=== PATIENT | male | born 1955 | race Caucasian/White ===

== ENCOUNTER 2016-11-26 23:59 | Emergency (ER) | payer OTHER ==
--- NOTE | ~2016-11-26 | CR181 ---
[facility] A Service of [facility] & [facility] RADIOLOGY TEXT RESULTS PATIENT: LI OLIVER LOCATION: [facility] : 54 UNIT #: [id number] AGE: [address]: Rodrigo Le MD SEX: M ORDER DR: [id number] [facility] [address] [place], [place] [address] [id number] MR#: [id number] Acc #: [id number] NAME: LI OLIVER : 1955 SEX: M STUDY DATE/TIME: 11/27/2016 00:16 UNIT: [facility] ROOM: STUDY DESCRIPTION: CR Lumbar Spine 2 or 3 Views Attending Physician: Rodrigo Le M.D. Ordering Physician: Rodrigo Le M.D. Primary Care Physician: Primary Care Physician No MEDICAL IMAGING REPORT This report is preliminary unless electronic signature is present EXAM Lumbar spine 11/27/2016 0016 hours INDICATION Back pain after a seizure and fall today. FINDINGS 3 views of the lumbar spine were obtained. No comparison. Lumbar alignment is normal. There is no subluxation. There are no compression fractures. There is degenerative disc disease with endplate spurring and narrowing predominantly at L5-S1, but also seen to a lesser degree at L1-2, L2-3. There is bilateral L5-S1 facet arthropathy. IMPRESSION Multilevel degenerative disease as above, most pronounced at L5-S1. No fracture or subluxation. Dictated by... Agusto Middleton Jr., M.D. THIS IS AN ELECTRONICALLY VERIFIED REPORT Agusto Middleton Jr., M.D. at 11/27/2016 9:16 PM TI/mauricio TD: 11/27/2016 09:59 JOB #: [id number] MEDICAL IMAGING REPORT COPY
--- NOTE | ~2016-11-26 | CT71 ---
[facility] A Service of [facility] RADIOLOGY TEXT RESULTS PATIENT: LI OLIVER LOCATION: [facility] : 54 UNIT #: [id number] AGE: [address]: Rodrigo Le MD SEX: M ORDER DR: [id number] [facility] [address] [place], [place] [address] [id number] MR#: [id number] Acc #: [id number] NAME: LI OLIVER : 1955 SEX: M STUDY DATE/TIME: 11/27/2016 01:27 UNIT: [facility] ROOM: STUDY DESCRIPTION: CT Head Wo Contrast Attending Physician: Rodrigo Le M.D. Ordering Physician: Rodrigo Le M.D. Primary Care Physician: No Primary Care Physician MEDICAL IMAGING REPORT This report is preliminary unless electronic signature is present EXAM Head CT, 11/27 at 01:27 hours. INDICATIONS Seizure x2 today with subsequent fall. Headache and possible frontal trauma. Pain, which is 6/10. TECHNIQUE This CT exam was performed with one or more of the following radiation dose reduction techniques: automatic exposure control, adjustment of mA and/or kV according to patient size, and iterative reconstruction. FINDINGS Axial images were obtained from base to the vertex without contrast. Comparison made with 06/18/2014. Ventricular size and configuration remain normal. There is generalized atrophy. There is no acute infarct or hemorrhage. There are no masses. No skull fracture. There is acute right maxillary sinusitis. There is complete opacification of the left maxillary sinus. While this is new from the prior head CT, this may be a chronic finding as there is medial bowing of the medial maxillary sinus wall on the left. IMPRESSION 1. No acute findings in the brain. No skull fracture. 2. Acute right maxillary sinusitis. 3. Complete opacification of the left maxillary sinus. There is medial bowing of the medial sinus wall on the left. While these findings appear new since the prior head CT in 2013, they are probably chronic. Dictated by... Agusto Middleton Jr., M.D. [facility] A Service of [facility] RADIOLOGY TEXT RESULTS PATIENT: LI OLIVER LOCATION: [facility] : 54 UNIT #: [id number] AGE: [address]: Rodrigo Le MD SEX: M ORDER DR: THIS IS AN ELECTRONICALLY VERIFIED REPORT Agusto Middleton Jr., M.D. at 11/27/2016 9:16 PM TI/jolie TD: 11/27/2016 10:03 JOB #: [id number] MEDICAL IMAGING REPORT COPY
[2016-11-26 23:46] LABS: BASOPHIL% 0.2 % (0-2.5); DIFF IND NO; EOSINOPHIL% 0.1 % (0.0-7.0); HEMATOCRIT 46.8 % (38.0-50.0); HEMOGLOBIN 15.8 gm/dL (13.0-16.0); LYMPHOCYTE# 1.2 X10e3 (1.0-3.5); LYMPHOCYTE% 8.1 % (17.0-45.0); MEAN CELL VOLUME 83.3 FL (83-96); MEAN CORPUSCULAR HEMOGLOBIN 28.1 PG (28-34); MEAN CORPUSCULAR HGB CONC 33.8 g/dL (30-36); MONOCYTE# 0.6 X10e3 (0-1.0); MONOCYTE% 4.1 % (3.0-12.0); NEUTROPHIL# 12.9 X10e3 (1.5-7.1); NEUTROPHIL% 87.5 % (40-75); PLATELET COUNT 256 X10e3 (140-420); RED BLOOD COUNT 5.61 X10e (3.90-5.60); RED CELL DISTRIBUTION WIDTH 13.1 % (11.0-15.5); WHITE BLOOD COUNT 14.7 X10e3 (4.0-10.5)
[2016-11-26 23:47] LABS: POC - CKMB 1.6 ng/mL (0.0-7.9); POC - TROPONIN <0.05 ng/mL (<=0.05)
[~2016-11-26 23:59] MED LIST: ACTOS15 MG PO; ADVAIR 2501 DISK W/D; ALBUTEROL17 G1; ASPIRIN81 M1 PO; CELEXA PO; COMBIVENT INH14.7 GM INH; COMBIVENT RESPIM4 GM IH; DEPACON100 MG/ML; DEPAKOTE PO; EFFEXOR; GLUCOTROL PO; KLONOPIN; LEXAPRO; LIPITOR40 MG PO; LISINOPRIL2.5 MG PO; LOPRESSOR PO; LORTAB 7.5-5001 TAB PO; METFORMIN PO; MONTELUKAST SOD10 MG PO; PRAVASTATIN SOD20 MG PO; QVAR7.3 GM INH; SIMVASTATIN40 MG PO; SINGULAIR PO; SYMBICORT INH; TEGRETOL PO
[2016-11-27 00:14] LABS: ALBUMIN SERUM 4.3 g/dL (3.5-5.0); ALKALINE PHOSPHATASE 96 U/L (32-92); ALT (SGPT) 16 U/L (10-40); AST (SGOT) 22 U/L (10-42); BILIRUBIN, DIRECT 0.1 mg/dL (0.0-0.2); BILIRUBIN,INDIRECT 0.2 mg/dL (0.0-0.9); BILIRUBIN,TOTAL 0.3 mg/dL (0.2-2.0); BLOOD UREA NITROGEN 17 mg/dL (9-23); BUN/CREATININE RATIO 21.25; CALCIUM SERUM 8.5 mg/dL (8.4-10.2); CARBON DIOXIDE 23 mmol/L (22-31); CHLORIDE 96 mmol/L (100-111); CREATININE SERUM 0.8 mg/dL (0.6-1.4); GLOM FILT RATE Estimated ABOVE60 mL/min (>60); GLUCOSE FASTING 259 mg/dL (70-110); POTASSIUM 3.9 mmol/L (3.5-5.1); PROTEIN TOTAL SERUM 7.6 g/dL (6.0-8.3); SODIUM 131 mmol/L (135-145)
[2016-11-27 00:15] LABS: ALCOHOL BLOOD <5 mg/dL (0); TEGRETOL (CARBAMAZEPINE) <2.0 ug/mL (4.0-12.0)
[2017-03-27] MEDS ORDERED: METOPROLOL TAR25 MG (14:54)
== END 2016-11-27 07:42 | disposition home or self-care (01) ==
LOC: CED 23:59
PROVIDERS: Emergency Medicine
DX: G40.409 Other generalized epilepsy and epileptic syndromes, not intractable, without status epilepticus (principal); S39.012A Strain of muscle, fascia and tendon of lower back, initial encounter; T14.8 Other injury of unspecified body region; J32.9 Chronic sinusitis, unspecified; E11.9 Type 2 diabetes mellitus without complications; J44.9 Chronic obstructive pulmonary disease, unspecified
CPT/HCPCS: 36415; 70450; 72100; 80048; 80076; 80156; 82553; 82947; 84484; 85025; 96365; 99284; G0480; J1953

== ENCOUNTER 2017-01-21 23:59 | Inpatient (IN) | payer OTHER ==
--- NOTE | ~2017-01-21 | CO ---
Unit #: [id number] #: [id number] Patient: LI OLIVER [id number] [facility] [address]. [place], [place] [address] [id number] MR#: [id number] NAME: LI OLIVER ROOM: 560 Age: 61 Sex: M Admission Date: 01/22/2017 : 1955 Attending Physician: Manish Joyce M.D. Primary Care Physician: No Primary Care Physician Consultation Date: 01/22/2017 CONSULTATION REPORT CONSULTING PHYSICIAN Dr. Manish Joyce REASON FOR CONSULT Seizures. PATIENT IDENTIFICATION This is a 61-year-old, right handed, male evaluated in room 560 at [facility]. SOURCE OF INFORMATION Obtained from the patient as well as the medical record. HISTORY OF PRESENT ILLNESS This is a 61-year-old, reportedly right handed per the patient, male with a history of seizure disorder, tobacco use, diabetes mellitus type 2, COPD, major depression, hyperlipidemia and pancreatitis who presents to [facility] with seizure activity. Apparently, he had a seizure yesterday at home. He was brought to the ER via EMS where he had another witnessed full tonic clonic generalized seizure. In the ER, he was given Ativan and symptoms resolved. He was admitted for further workup and evaluation. Neurology was asked to further evaluate given breakthrough seizures. Of note, he apparently was just seen in his neurologist's office. He follows with Dr. Borden and Ana Mccarty, Conner.P.RGénesis. Apparently, was being weaned off his Tegretol and had been started on Aptiom. However, the patient is a very poor historian regarding reasons as to why the adjustments are being made. He states that he had had a breakthrough seizure. When I asked him about his frequency though, he says he has only had three seizures since he stopped Depakote. Looking back in the medical records, it appears that he has been off Depakote for several years. The patient has chronic memory loss and is a very difficult historian regarding what his goals of care and plan of care are. He states he thinks that his medications were being adjusted because he had a seizure. He says he saw the nurse practitioner one to two weeks ago. He is telling me that he wants to go back on Depakote because "I did good on that medicine." He has a history, looking back in the records where Dr. Aburto saw him in 2013 and 2009, of behavioral issues with Tiffany. He does have a history of major depressive disorder. Otherwise, he is no longer postictal. He is at his baseline, he says. He denies any fever or chills, change in weight or routine. He does complain of chronic frontal headache. He denies any other new symptoms, any nausea, vomiting, abdominal pain, dysphagia, focal weakness or paresthesia, head or neck injury, recent illness or injury. He does complain of pain in his feet on the bottom and the top. He says "I think Unit #: [id number] #: [id number] Patient: LI OLIVER it is my diabetes." PAST MEDICAL HISTORY 1. Seizure disorder. He is followed by Dr. John Borden and Ana Mccarty, A.P.R.N. 2. Tobacco abuse. 3. Diabetes mellitus type 2. 4. COPD. 5. Major depressive disorder. 6. Hyperlipidemia. 7. Chronic memory loss. 8. Pancreatitis, documented as attributed to alcohol use though the patient denies a history of alcohol use. 9. Bilateral cataract surgery. ALLERGIES No known drug allergies. HOME MEDICATIONS 1. Lopressor 25 mg p.o. b.i.d. 2. Tegretol extended release, 200 mg in the morning and 100 mg in the evening. However, looking at his Med Rec, it is documented as 200 mg p.o. b.i.d., two tabs by mouth in the morning and one tab at night. Uncertain of exactly whether he takes 400 in the morning and 200 at night or 200 in the morning and 100 at night. It is documented differently in two separate spots on the chart. 3. Glucotrol 5 mg p.o. b.i.d. 4. Glucophage 100 mg p.o. b.i.d. 5. Celexa 20 mg p.o. daily. 6. Lisinopril 2.5 mg p.o. daily. 7. Montelukast sodium 10 mg p.o. daily. 8. Lipitor 40 mg p.o. daily. 9. Actos 15 mg p.o. daily. 10. Protonix 40 mg p.o. daily. 11. Breo Ellipta, two puffs inhalation b.i.d. 12. Aptiom 400 mg p.o. daily, started one to two weeks ago. FAMILY HISTORY Noncontributory to the presenting condition. SOCIAL HISTORY The patient is . He smokes tobacco, specifically a pipe. He denies alcohol use or abuse or illicit drug use. REVIEW OF SYSTEMS Twelve point review of systems was attempted. Pertinent positives are as discussed above. Otherwise, noncontributory to the presenting condition. The patient is a very poor historian and I am uncertain of his reliability. PHYSICAL EXAMINATION NEUROLOGICAL EXAM: The patient is awake. He is alert and oriented to person. He is oriented to place. He can tell me the month and the year. He follows simple commands. He has no aphasia, dysarthria or apraxia. He does have a lot of teeth missing but even then he doesn't have significant dysarthria. He is a poor historian but can answer simple questions. He follows commands without difficulty. When I attempt to do a neurologic exam, he says "I think you're messing with me." CRANIAL NERVE EXAM: He demonstrates what appears to be full vaughn of Unit #: [id number] #: [id number] Patient: OLIVER,LI vision. His eyes are conjugate without ptosis or nystagmus. Extraocular movements are intact. Sensation of face and scalp is intact. Strength of muscles of facial expression is intact. Hearing is intact to voice. Tongue is midline, uvula is midline. Palate elevation is normal. Head turning and shoulder shrug is unremarkable. Neck is supple. MOTOR EXAM: He demonstrates decreased normal bulk. Tone is normal and strength is equal in all extremities. SENSORY EXAM: He does have decreased sensation in the lower extremities distally compared to proximally. He complains of pain on the bottom of his feet and top of his feet. He does have good position sensation awareness, however. GAIT AND ROMBERG: Deferred. REFLEXES: Unable to elicit. Toes are equivocal. COORDINATION EVALUATION: He has no past-pointing and he has normal [id number]. DIAGNOSTIC STUDIES IMAGING: CT of the head without contrast on 01/22/17 - no acute intracranial abnormality. Features of chronic left maxillary sinusitis, similar to 11/27/[address] of the cervical spine without contrast on 01/22/17. Impression - multilevel degenerative changes in the cervical spine. No acute cervical spine fracture or subluxation is seen per radiology report. Chest x-ray portable single view on 01/22/17. Impression per radiology report - no acute chest findings. CARDIOVASCULAR: EKG - sinus tachycardia, otherwise normal per cardiology report on 01/22/17. LABORATORY: Urine drug screen unremarkable. Urinalysis shows 2+ protein, greater than 1000 glucose, 5-10 red cells, 0-2 white cells, negative for bacteria. Occasional squamous cells. Culture not indicated. Sodium 132, potassium 4.1, chloride 103, CO2 22, glucose 200, BUN 15, creatinine 0.8, estimated GFR 95.8, calcium 8.7. AST is 20, ALT 18, alkaline phos. 86, total protein 7.3, albumin 4.3. Tegretol level 3.2, alcohol level less than 5. PT 11.3, INR 1.1, PTT 24.3. White blood cell count 15.1, hemoglobin 14.2, hematocrit 42.3, platelet count 222. Glucose on arrival 201. IMPRESSION 1. Breakthrough seizures. 2. Seizure disorder. 3. Chronic memory loss. 4. Chronic obstructive pulmonary disease. 5. Depression. 6. Diabetes mellitus type 2. 7. Leukocytosis, questionable reactive. 8. Tobacco abuse. PLAN Will request records from the patient's primary neurologist so that way we Unit #: [id number] #: [id number] Patient: LI OLIVER can be clear what their plan of care was as the patient is a poor historian. Again, those details are unclear as to why adjustments were being made and our concern is did the patient have side effects to Tegretol, did he have abnormal lab work? Liver functions appear to be okay now. He does have leukocytosis though that could be reactive. His sodium is mildly low. Again, we need those details so we can have a clear picture of why adjustments were being made rather than just resuming him back on his old medications. Will leave Tegretol as is pending review of those records. Will stop his Keppra given his history of behavioral changes in the past and will add a trial of Vimpat with the Tegretol as it doesn't appear that he has tried that in the past and patient does not appear to exhibit behavioral issues with that medication as compared to Keppra. The case was discussed with Dr. Aburto and he agrees to the above. We will follow along with you. We thank you very much for allowing us to assist in the care of this patient. Further recommendations to be made pending workup and further clinical course and review of records. Dictated by... Cassidy Laughlin A.P.R.N. for Mago BelcherM/curry TD: 01/23/2017 06:59 JOB #: [id number] CONSULTATION REPORT Page 1 of 1 X Cassidy Laughlin APRN X CONSULTATION REPORT
--- NOTE | ~2017-01-21 | CT52 ---
[facility] A Service of [facility] RADIOLOGY TEXT RESULTS PATIENT: LI OLIVER LOCATION: C5B 560- : 54 UNIT #: [id number] AGE: [address]: Manish Joyce MD SEX: M ORDER DR: [id number] [address] [address] [id number] I MR#: [id number] Acc #: [id number] NAME: LI OLIVER : 1955 SEX: M STUDY DATE/TIME: 01/22/2017 1:32 UNIT: [facility] ROOM: [facility] STUDY DESCRIPTION: CT Cervical Spine Wo Cont Attending Physician: Manish Joyce M.D. Ordering Physician: Rodrigo Le M.D. Primary Care Physician: No Primary Care Physician MEDICAL IMAGING REPORT This report is preliminary unless electronic signature is present EXAM CT cervical spine without contrast. DATE 01/22/2017 HISTORY Unresponsive with neck pain since 01/21/2017. Seizure, unknown if hit head at 4 p.m. on 01/21/2017. COMPARISON None PROCEDURE 2 mm noncontrast axial images through the cervical spine. Sagittal and coronal reformatted images were obtained. This CT exam was performed with one or more of the following radiation dose reduction techniques: automatic exposure control, adjustment of mA and/or kV according to patient size, and iterative reconstruction. FINDINGS Prominent anterior osteophyte formation is seen in a near confluent fashion from C2-T1. Disc space height appears maintained. Multilevel cervical facet arthropathy and posterior osteophyte formation is present. No acute cervical spine fracture or subluxation is identified. At C3-4, there is posterior disc osteophyte formation with probable moderate canal stenosis, moderate left and mild right neural foraminal narrowing. At C4-5, severe canal stenosis secondary to uncovertebral spurring and facet arthropathy. Posterior calcification with moderate canal stenosis. [facility] A Service of [facility] RADIOLOGY TEXT RESULTS PATIENT: LI OLIVER LOCATION: [facility] 560- : 54 UNIT #: [id number] AGE: [address]: Manish Joyce MD SEX: M ORDER DR: At C5-6, there is moderate canal stenosis with mild to moderate left neural foraminal narrowing due to posterior disc osteophyte formation and facet arthropathy. At C6-7, posterior disc osteophyte formation with right greater left uncovertebral spurring and facet arthropathy results in mild to moderate canal stenosis, moderate right greater than left neural foraminal narrowing. IMPRESSION Multilevel degenerative changes of the cervical spine. No acute cervical spine fracture or subluxation is seen. Dictated by... Gena Hayes M.D. THIS IS AN ELECTRONICALLY VERIFIED REPORT Gena Hayes M.D. at 01/22/2017 10:04 PM SHAN/ciro TD: 01/22/2017 09:25 JOB #: [id number] MEDICAL IMAGING REPORT Page 1 of 1 COPY
--- NOTE | ~2017-01-21 | CT71 ---
[facility] A Service of [facility] RADIOLOGY TEXT RESULTS PATIENT: LI OLIVER LOCATION: [facility] 560 : 54 UNIT #: [id number] AGE: [address]: Manish Joyce MD SEX: M ORDER DR: [id number] [address] [place], [place] [address] [id number] I MR#: [id number] Acc #: [id number] NAME: LI OLIVER : 1955 SEX: M STUDY DATE/TIME: 01/22/2017 1:22 UNIT: [facility] ROOM: [facility] STUDY DESCRIPTION: CT Head Wo Contrast Attending Physician: Manish Joyce M.D. Ordering Physician: Rodrigo Le M.D. Primary Care Physician: No Primary Care Physician MEDICAL IMAGING REPORT This report is preliminary unless electronic signature is present EXAM Noncontrast CT head. DATE 01/22/2017 HISTORY 61-year-old male seizure activity, 01/21/2017, unresponsive. Neck pain. COMPARISON Noncontrast CT head 11/27/2016. TECHNIQUE This CT exam was performed with one or more of the following radiation dose reduction techniques: automatic exposure control, adjustment of mA and/or kV according to patient size, and iterative reconstruction. FINDINGS Opacification of the left maxillary sinus suggesting features of chronic sinusitis, unchanged from prior. 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 No acute calvarial abnormality. No acute intracranial hemorrhage, mass lesion, mass effect, or midline shift is seen. There is no CT evidence of acute or evolving infarct. Ventricular configuration is within normal limits. IMPRESSION 1. No acute intracranial findings. 2. Features of chronic left maxillary sinusitis, similar to the 11/27/2016 examination. Dictated by... [facility] A Service [facility] RADIOLOGY TEXT RESULTS PATIENT: LI OLIVER LOCATION: C5B 560 : 53 UNIT #: [id number] AGE: [address]: Manish Joyce MD SEX: M ORDER DR: Gena Hayes M.D. THIS IS AN ELECTRONICALLY VERIFIED REPORT Gena Hayes M.D. at 01/22/2017 10:04 PM SHAN/ciro TD: 01/22/2017 09:21 JOB #: [id number] MEDICAL IMAGING REPORT Page 1 of 1 COPY
--- NOTE | ~2017-01-21 | EKG ---
PATIENT: LI OLIVER UNIT #: [id number] Ventricular Rate: 107 BPM Atrial Rate: 107 BPM P-R Interval: 160 ms QRS Duration: 88 ms Q-T Interval: 338 ms QTC Calculation(Bezet): 451 ms P Greenfield: 56 degrees Calculated R Greenfield: 10 degrees Calculated T Greenfield: 81 degrees Diagnosis Line: Sinus tachycardia Diagnosis Line: Otherwise normal ECG Diagnosis Line: When compared with ECG of 27-JUN-2016 13:58, Diagnosis Line: Vent. rate has increased BY 38 BPM Diagnosis Line: Confirmed by BOGDAN BRYANT MD ([id number]) on 01/22/2017 Diagnosis Line: 9:43:23 AM INTERPRETING MD: ANNETTE KELLOGG
--- NOTE | ~2017-01-21 | CR72 ---
[facility] A Service of [facility] RADIOLOGY TEXT RESULTS PATIENT: LI OLIVER LOCATION: [facility] : 54 UNIT #: [id number] AGE: [address]: Manish Joyce MD SEX: M ORDER DR: [id number] [address] [address] [id number] I MR#: [id number] Acc #: [id number] NAME: LI OLIVER : 1955 SEX: M STUDY DATE/TIME: 01/22/2017 0:45 UNIT: B ROOM: [facility] STUDY DESCRIPTION: CR Chest Single View Portable Attending Physician: Manish Joyce M.D. Ordering Physician: Rodrigo Le M.D. Primary Care Physician: No Primary Care Physician MEDICAL IMAGING REPORT This report is preliminary unless electronic signature is present EXAM AP portable chest. DATE 01/22/2017 at 0045 HISTORY 61-year-old male with seizure activity, shortness of breath and effusions since 1600. Diabetes. History of seizures. Hypertension. COMPARISON PA and lateral chest radiograph, 06/27/2016. FINDINGS Low volume inspiration. Lungs appear clear. Heart size is normal. Benign calcified granuloma in the left hilum. No pleural effusion or pneumothorax. IMPRESSION No acute chest findings. Dictated by... Gena Hayes M.D. THIS IS AN ELECTRONICALLY VERIFIED REPORT Gena Hayes M.D. at 01/22/2017 10:06 PM [facility]/ciro TD: 01/22/2017 09:03 JOB #: [id number] [facility] A Service of [facility] RADIOLOGY TEXT RESULTS PATIENT: LI OLIVER LOCATION: [facility] : 53 UNIT #: [id number] AGE: [address]: Manish Joyce MD SEX: M ORDER DR: MEDICAL IMAGING REPORT Page 1 of 1 COPY
--- NOTE | ~2017-01-21 | HP ---
Unit #: [id number] #: [id number] Patient: LI OLIVER [id number] [address] [address] [id number] I MR#: [id number] NAME: LI OLIVER ROOM: 560 Age: 61 Sex: M Admission Date: 01/22/2017 : 1955 Attending Physician: Manish Joyce M.D. Primary Care Physician: No Primary Care Physician HISTORY AND PHYSICAL HISTORY OF PRESENT ILLNESS The patient is a 61-year-old white male with a history of epilepsy, tobacco use, type 2 diabetes mellitus, COPD, major depressive disorder, hyperlipidemia. He apparently was recently seen in his neurologist's office and for whatever reason they were weaning him off his Tegretol and switched him to Aptiom. He had cut down to one Tegretol daily when he had a seizure yesterday at home. Was brought to the emergency room per EMS and had a full tonic clonic seizure in the emergency room, treated with Ativan, resolved. His workup was essentially unremarkable except for slightly low sodium. Tegretol level was, of course, subtherapeutic at 3.2. His white count was slightly elevated at 15.1. He had 5-10 RBCs in his urinalysis but, otherwise, everything was normal and he was admitted. His is at the bedside during the history and physical examination. The patient is somewhat still postictal, not able to give much details. ALLERGIES No known drug allergies. MEDICATIONS His medications prior to admission: 1. Lopressor 25 mg b.i.d. 2. Tegretol ER 200 mg 2 a.m. and 1 p.m. 3. Glucotrol 5 mg b.i.d. 4. Glucophage 1000 mg twice daily. 5. Celexa 20 mg daily. 6. Lisinopril 2.5 mg daily. 7. Singulair 10 mg daily. 8. Lipitor 40 mg daily. 9. Actos 15 mg daily. 10. Protonix 40 mg daily. 11. Breo Ellipta 100/25, two puffs b.i.d. 12. Aptiom as mentioned above, 400 mg daily. SURGICAL HISTORY Only significant for bilateral cataracts. PAST MEDICAL HISTORY 1. Epilepsy. 2. Tobacco use. 3. Type 2 diabetes mellitus. 4. COPD. 5. Major depressive disorder. 6. Hyperlipidemia. Unit #: [id number] #: [id number] Patient: LI OLIVER SOCIAL HISTORY . Smokes a pipe. No alcohol or street drug use. FAMILY HISTORY Noncontributory. PHYSICAL EXAMINATION GENERAL: Again, the patient is somewhat postictal but is arousable and conversant. VITAL SIGNS: Temperature is 98.1, pulse 106, respirations 16, blood pressure 120/78. O2 sat on room air is 97%. HEENT: Unremarkable. NECK: Supple without JVD, bruits, adenopathy or thyromegaly. CHEST: Clear to auscultation. Diffusely decreased breath sounds. HEART: Regular rate and rhythm but is tachycardic without an S3, gallop or murmur appreciated. ABDOMEN: Soft, nondistended, nontender with positive bowel sounds and no hepatosplenomegaly. EXTREMITIES: No clubbing, cyanosis or edema. /RECTAL: Deferred. NEUROLOGIC EXAM: No focal deficits. DIAGNOSTIC STUDIES LABORATORY: Lab values - random blood sugar in the ER was 201. CBC was normal except for white count of 15.1. PT and PTT within normal limits. CMP is normal except for sodium of 132 and random blood sugar of 200. Alcohol level less than 5. Tegretol 3.2. Urinalysis - 2+ protein, greater than 1000 mg/dl of glucose, 5-10 RBCs. Urine drug screen negative. CARDIOVASCULAR: EKG shows a sinus tachycardia at 107 beats/minute but is otherwise within normal limits. IMAGING: Chest x-ray reportedly shows no active disease. CT scan of the head and neck reportedly showed multi-level degenerative disc disease but, otherwise, no acute fractures or strokes. IMPRESSION 1. Recurrent seizures secondary to adjustments in epileptic medicine. 2. Epilepsy. 3. Tobacco use. 4. Chronic obstructive pulmonary disease. 5. Type 2 diabetes mellitus. 6. Major depressive disorder. 7. Hyperlipidemia. 8. Proteinuria. 9. Microscopic hematuria. 10. Leukocytosis, likely secondary to demargination from the seizure. 11. Sinus tachycardia. Unit #: [id number] #: [id number] Patient: LI OLIVER PLAN DC Aptiom. Resume home dose of Tegretol. Cover with IV Keppra. Neurology to consult. DVT prophylaxis. Resume home meds less Glucophage and Aptiom. Dictated by Mago Blanco/curry TD: 01/22/2017 07:35 JOB #: [id number] HISTORY AND PHYSICAL Page 1 of 1 X Manish Joyce MD X HISTORY AND PHYSICAL
--- NOTE | ~2017-01-21 | DS ---
Unit #: [id number] #: [id number] Patient: LI OLIVER [id number] [address] [address] [id number] I MR#: [id number] NAME: LI OLIVER ROOM: 560 Age: 61 Sex: M Admission Date: 01/22/2017 : 1955 Discharge Date: 01/24/2017 Attending Physician: Manish Joyce M.D. Primary Care Physician: No Primary Care Physician DISCHARGE SUMMARY PRINCIPAL DISCHARGE DIAGNOSES 1. Recurrent seizures. 2. Epilepsy. 3. Tobacco use. 4. Chronic obstructive pulmonary disease. 5. Leukocytosis. 6. Microhematuria. 7. Type 2 diabetes mellitus. 8. Major depressive disorder. 9. Hyperlipidemia. 10. Proteinuria. 11. Transient hypotension while here in the hospital. 12. Hyponatremia. PROCEDURE None. CONSULTANTS Dr. Aburto with neurology. REASON FOR HOSPITALIZATION The patient is a 61-year-old white male with history of epilepsy, tobacco use, type 2 diabetes mellitus, COPD, major depressive disorder, hyperlipidemia, who had recently had a seizure after he ran out of his Tegretol. His pharmacy did not have it to refill. He then saw his neurologist who was weaning him off his Tegretol and put him on Aptiom. After that happened, the patient had two full-blown seizures, arrived in the emergency room. There, his vital signs were within normal limits. Random blood sugar was 201. CBC was normal except for a white count of 15.1. Coags were normal. EKG showed a sinus tachycardia but was otherwise normal. His sodium was slightly low at 132. His alcohol level was less than 5. Tegretol was low at 3.2. Urinalysis showed 2+ protein, 5-10 RBCs, and 1000 mg/dL of glucose. Urine drug screen was negative. Chest x-ray showed no active disease. CT scan of the spine without contrast showed multilevel degenerative changes but no fractures or subluxations. CT scan of the head without contrast showed no acute findings. Features of chronic left maxillary sinusitis similar to November 27, 2016 exam, and the patient was admitted. HOSPITAL COURSE The patient was admitted to telemetry bed. He was placed on seizures precautions. Accu-Cheks were obtained a.c. and at bedtime. He was placed on IV Keppra. Neurology was consulted. They recommended the addition of Vimpat and discontinued his Keppra. He became hypotensive on the night of Unit #: [id number] #: [id number] Patient: LI OLIVER the 3rd or early in the morning of the 4th. STAT CBC and BMP were within normal limits. His sodium and white cells had normalized. His lisinopril and Lopressor were discontinued. He received one fluid bolus and some IV fluids. His blood pressure has been fine ever since. Currently, he is asymptomatic. He has had no seizures since admission. Dr. Aburto feels like he is safe for discharge on Vimpat and Tegretol and sees his neurologist, Dr. Borden, which is already scheduled for the of this month. He is being discharged home on a healthy heart constant carb diet. He is to follow up with Dr. Rodriguez in one week and Dr. Borden as previously scheduled, February 06, 2017. CURRENT MEDICATIONS 1. Tylenol 650 p.o. q.6 p.r.n. 2. Tegretol 200 mg p.o. b.i.d. 3. Vimpat 100 mg p.o. b.i.d. 4. Celexa 20 mg p.o. daily. 5. Glucophage 1000 mg b.i.d. 6. Actos 15 mg daily. 7. Lopressor is discontinued as well as lisinopril. 8. He is on Breo Ellipta 100/25 one inhalation b.i.d. 9. Lipitor 40 mg daily. 10. Singulair 10 mg daily. 11. Protonix 40 mg daily. 12. Glucotrol 5 mg b.i.d. Again, he is encouraged to discontinue his tobacco use. Apparently, he is a pipe smoker at home per his . He will follow up as discussed above. Dictated by... Manish Joyce M.D. KIMBERLEE/rene TD: 01/25/2017 11:22 JOB #: [id number] DISCHARGE SUMMARY Page 1 of 1 X Manish Joyce MD X DISCHARGE SUMMARY
[2017-01-22 00:51] LABS: BASOPHIL% 0.1 % (0-2.5); EOSINOPHIL% 0.1 % (0.0-7.0); HEMATOCRIT 42.3 % (38.0-50.0); HEMOGLOBIN 14.2 gm/dL (13.0-16.0); LYMPHOCYTE# 1.4 X10e3 (1.0-3.5); MEAN CELL VOLUME 83.3 FL (83-96); MEAN CORPUSCULAR HEMOGLOBIN 28.1 PG (28-34); MEAN CORPUSCULAR HGB CONC 33.7 g/dL (30-36); MEAN PLATELET VOLUME 8.6 FL (6.5-11.5); MONOCYTE# 0.9 X10e3 (0-1.0); MONOCYTE% 5.9 % (3.0-12.0); NEUTROPHIL# 12.8 X10e3 (1.5-7.1); NEUTROPHIL% 84.9 % (40-75); PLATELET COUNT 222 X10e3 (140-420); RED BLOOD COUNT 5.07 X10e (3.90-5.60); RED CELL DISTRIBUTION WIDTH 13.3 % (11.0-15.5); WHITE BLOOD COUNT 15.1 X10e3 (4.0-10.5)
[2017-01-22 00:58] LABS: DIFF IND NO
[2017-01-22 01:00] LABS: INR 1.1; PARTIAL THROMBOPLASTIN TIME 24.3 SECONDS (23.5-31.3); PROTHROMBIN TIME (PATIENT) 11.3 SECONDS (9.6-11.5)
[2017-01-22 01:11] LABS: ALBUMIN SERUM 4.3 g/dL (3.5-5.0); ALKALINE PHOSPHATASE 86 U/L (32-92); ALT (SGPT) 18 U/L (10-40); AST (SGOT) 20 U/L (10-42); BILIRUBIN, DIRECT 0.1 mg/dL (0.0-0.2); BILIRUBIN,INDIRECT 0.5 mg/dL (0.0-0.9); BILIRUBIN,TOTAL 0.6 mg/dL (0.2-2.0); BLOOD UREA NITROGEN 15 mg/dL (9-23); BUN/CREATININE RATIO 18.75; CALCIUM SERUM 8.7 mg/dL (8.4-10.2); CARBON DIOXIDE 22 mmol/L (22-31); CHLORIDE 103 mmol/L (100-111); CREATININE SERUM 0.8 mg/dL (0.6-1.4); GLOM FILT RATE Estimated 95.8 mL/min (>60); GLUCOSE FASTING 200 mg/dL (70-110); POTASSIUM 4.1 mmol/L (3.5-5.1); PROTEIN TOTAL SERUM 7.3 g/dL (6.0-8.3); SODIUM 132 mmol/L (135-145); TEGRETOL (CARBAMAZEPINE) 3.2 ug/mL (4.0-12.0)
[2017-01-22 01:12] LABS: ALCOHOL BLOOD <5 mg/dL (0)
[2017-01-22 01:27] LABS: URINE SOURCE CLEAN CATCH
[2017-01-22 01:37] LABS: URINE APPEARANCE CLEAR; URINE BILIRUBIN NEG (NEG); URINE BLOOD TRACE (NEG); URINE COLOR YELLOW; URINE GLUCOSE >1000 MG/DL (NEG); URINE KETONE 1+ (NEG); URINE LEUKOCYTE ESTERASE NEG (NEG); URINE NITRATE NEG (NEG); URINE PROTEIN 2+ (NEG); URINE SPECIFIC GRAVITY 1.028 (1.003-1.035)
[2017-01-22 01:40] LABS: URINE BACTERIA AUWI NEG (NEGATIVE); URINE SQUAMOUS EPITHELIAL CELL OCC /[HPF]; UWBCS1 AUWI 0-2 (0-5)
[2017-01-22] MEDS ORDERED: PROTONIX PO (01:42)
[2017-01-22] MEDS ORDERED: BREO ELLIPTA 11 EACH INH (01:46)
[2017-01-22] MEDS ORDERED: APTIOM800 MG PO (01:49)
[2017-01-22 01:51] LABS: AMPHETAMINE NEG (NEG); BARBITURATES NEG (NEG); BENZODIAZEPINES NEG (NEG); COCAINE NEG (NEG); CULTURE INDICATED? NO; MARIJUANA NEG (NEG); OPIATES NEG (NEG); TRICYCLIC ANTIDEPRESSANTS NEG (NEG); U METHADONE NEG (NEG); URINE SPERM PRESENT
[2017-01-23 08:04] LABS: HEMATOCRIT 39.5 % (38.0-50.0); HEMOGLOBIN 13.1 gm/dL (13.0-16.0); MEAN CELL VOLUME 84.8 FL (83-96); MEAN CORPUSCULAR HEMOGLOBIN 28.1 PG (28-34); MEAN CORPUSCULAR HGB CONC 33.2 g/dL (30-36); MEAN PLATELET VOLUME 7.9 FL (6.5-11.5); RED BLOOD COUNT 4.65 X10e (3.90-5.60); RED CELL DISTRIBUTION WIDTH 13.4 % (11.0-15.5); WHITE BLOOD COUNT 9.1 X10e3 (4.0-10.5)
[2017-01-23 09:08] LABS: CALCIUM SERUM 8.6 mg/dL (8.4-10.2); GLOM FILT RATE Estimated 80.3 mL/min (>60); POTASSIUM 4.3 mmol/L (3.5-5.1)
[2017-01-24] MEDS ORDERED: VIMPAT100 MG PO (07:57)
[2017-01-24] MEDS ORDERED: ACETAMINOPHEN325 MG PO (07:57)
[2017-03-27] MEDS ORDERED: METOPROLOL TAR25 MG (14:54)
== END 2017-01-24 13:01 | disposition home or self-care (01) | DRG 101 ==
LOC: CED 23:59 → CEDOF 01-22 02:25 → C5B 01-22 04:58
PROVIDERS: Emergency Medicine; Internal Medicine
DX: G40.909 Epilepsy, unspecified, not intractable, without status epilepticus (principal); E87.1 Hypo-osmolality and hyponatremia; J44.9 Chronic obstructive pulmonary disease, unspecified; F32.9 Major depressive disorder, single episode, unspecified; E11.9 Type 2 diabetes mellitus without complications; E78.5 Hyperlipidemia, unspecified; F17.210 Nicotine dependence, cigarettes, uncomplicated; Z98.42 Cataract extraction status, left eye; Z98.41 Cataract extraction status, right eye; R31.29 Other microscopic hematuria; R80.9 Proteinuria, unspecified
CPT/HCPCS: 36415; 51701; 70450; 71010; 72125; 80048; 80076; 80156; 80307; 81003; 82947; 85025; 85027; 85610; 85730; 93005; 94760; 96374; 96375; 99285; G0480; J1650; J1815; J1953; J2060; J2405

== ENCOUNTER 2017-03-12 17:49 | Observation (INO) | payer OTHER ==
--- NOTE | ~2017-03-12 | CR72 ---
[facility] A Service of [facility] & [facility] RADIOLOGY TEXT RESULTS PATIENT: LI OLIVER LOCATION: [facility] 338-01 : 54 UNIT #: [id number] AGE: [address]: Manish Joyce MD SEX: M ORDER DR: [id number] [facility]. [place], [place] [address] [id number] MR#: [id number] Acc #: [id number] NAME: LI OLIVER : 1955 SEX: M STUDY DATE/TIME: 03/12/2017 19:02 UNIT: [facility] ROOM: STUDY DESCRIPTION: CR Chest Single View Portable Attending Physician: Krishna De Leon M.D. Ordering Physician: Krishna De Leon M.D. Primary Care Physician: No Primary Care Physician MEDICAL IMAGING REPORT This report is preliminary unless electronic signature is present EXAM Portable chest HISTORY Shortness of air with activity altered mental status since 03/11/2017 COMPARISON 01/22/2017 FINDINGS Portable view of the chest demonstrates low lung volumes. No infiltrates or effusions. Heart, mediastinum great vessels unremarkable. No invasive tubes or lines identified. No pneumothorax. Overall no acute findings. Dictated by... Сергей Oshea M.D. THIS IS AN ELECTRONICALLY VERIFIED REPORT Сергей Oshea M.D. at 03/13/2017 2:46 PM KENDALL/jessica TD: 03/12/2017 19:35 JOB #: [id number] MEDICAL IMAGING REPORT Page 1 of 1 COPY
--- NOTE | ~2017-03-12 | EKG ---
PATIENT: LI OLIVER UNIT #: [id number] Ventricular Rate: 111 BPM Atrial Rate: 111 BPM P-R Interval: 134 ms QRS Duration: 74 ms Q-T Interval: 328 ms QTC Calculation(Bezet): 446 ms P Homer: 19 degrees Calculated R Homer: -22 degrees Calculated T Homer: 53 degrees Diagnosis Line: Sinus tachycardia Diagnosis Line: Borderline ECG Diagnosis Line: When compared with ECG of 22-JAN-2017 01:00, Diagnosis Line: No significant change was found Diagnosis Line: Confirmed by RAKAN BECK MD ([id number]) on Diagnosis Line: 03/13/2017 7:33:56 AM INTERPRETING SALOMON BONILLA
--- NOTE | ~2017-03-12 | HP ---
Unit #: [id number] #: [id number] Patient: LI OLIVER [id number] [address] [address] [id number] I MR#: [id number] NAME: LI OLIVER ROOM: 338 Age: 61 Sex: M Admission Date: 03/12/2017 : 1955 Attending Physician: Manish Joyce M.D. Primary Care Physician: No Primary Care Physician HISTORY AND PHYSICAL HISTORY OF PRESENT ILLNESS The patient is a 61-year-old white male with a history of seizure disorder, chronic obstructive pulmonary disease, hyperlipidemia, hypertension, type 2 diabetes mellitus, major depressive disorder. Two days ago his stated that he started having things like echolalia and expressive aphasia. He seemed to follow commands. He has developed a small abscess on his back, for which he is seeing [facility]. He was just started on Bactrim for this. He eventually presented himself to the emergency room and his workup was completely negative. He still will not answer commands or follow with verbal stimuli. He does follow verbal commands, but will not respond whatsoever. He does have some, what appears to be some nystagmus, which the states is new. He is admitted for further evaluation. The patient is unable to give any history. The states that he has had no other physical problems. PAST MEDICAL HISTORY 1. Epilepsy. 2. Tobacco use. 3. Type 2 diabetes mellitus. 4. Chronic obstructive pulmonary disease. 5. Major depressive disorder. 6. Hyperlipidemia. PAST SURGICAL HISTORY Bilateral cataracts. SOCIAL HISTORY . Smokes a pipe. No alcohol or street drug use. FAMILY HISTORY Noncontributory. ALLERGIES No known drug allergies. PREADMISSION MEDICATIONS 1. Lipitor 40 mg daily. 2. Singulair 10 mg daily. 3. Breo 100/25 one inhalation daily. 4. Protonix 40 mg daily. 5. Vimpat 100 mg b.i.d. 6. Celexa 20 mg daily. 7. Tegretol 200 mg b.i.d. 8. Glucophage 1000 mg b.i.d. Unit #: [id number] #: [id number] Patient: LI OLIVER 9. Actos 15 mg daily. 10. Glucotrol 5 mg b.i.d. 11. Bactrim double strength as mentioned above, 1 p.o. b.i.d. To start yesterday. PHYSICAL EXAMINATION GENERAL: He is awake, semi alert. Again, seems to follow commands. When I asked him to sit up and take deep breaths in the bed so I could look at his abscess and listen to his lungs he did that without any trouble and laid right back down after a brief period of time, but will not respond verbally to any stimuli. VITALS: Afebrile, pulse 109, respiratory rate 16, blood pressure 154/97, O2 saturation 97%. HEENT: Unremarkable. NECK: Supple without jugular venous distension, bruits, adenopathy or thyromegaly. CHEST: Clear to auscultation. HEART: Regular rate and rhythm. No murmurs, rubs or gallops. ABDOMEN: Soft, nondistended and nontender, with positive bowel sounds. No hepatosplenomegaly. EXTREMITIES: No clubbing, cyanosis or edema. /RECTAL: Deferred. NEUROLOGIC: No focal deficits. Again, he has some strange movement in his eyes. It almost looks purposeful. Not exactly like nystagmus, but there is some rhythm to it. Again, he has an expressive aphasia. DIAGNOSTIC STUDIES IMAGING: Chest x-ray no active disease. CT scan of the head no active disease. Chronically opacified left maxillary sinus. LABORATORY: Random blood sugar 157. White blood cell count 12.1, the rest of the CBC normal. Ammonia 11, normal. Alcohol less than 5. PT/INR 1.1. Tegretol 4.8. Urinalysis 1+ protein, greater than 1000 glucose. CMP normal except for random blood sugar of 164. CARDIOVASCULAR: EKG sinus tachycardia. 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 No old tracings for comparison. ASSESSMENT 1. Acute mental status change. 2. Expressive aphasia. 3. Seizure disorder. 4. Chronic obstructive pulmonary disease. 5. Hypertension. 6. Hyperlipidemia. 7. Skin abscess. 8. Gastroesophageal reflux disease. 9. Major depressive disorder. PLAN Bedside swallow evaluation. DVT prophylaxis with SCDs. Neurology to consult. Accu-Cheks morning and evening. Low-dose sliding scale insulin. Resume home medications less Glucophage. Further evaluation pending results of the above. Unit #: [id number] #: [id number] Patient: LI OLIVER Dictated by Manish Joyce M.D. WRK/gz TD: 03/13/2017 07:20 JOB #: [id number] HISTORY AND PHYSICAL Page 1 of 1 X Manish Joyce MD X HISTORY AND PHYSICAL
--- NOTE | ~2017-03-12 | MR17 ---
[facility] A Service of [facility] RADIOLOGY TEXT RESULTS PATIENT: LI OLIVER LOCATION: C3A : 54 UNIT #: [id number] AGE: [address]: Manish Joyce MD SEX: M ORDER DR: [id number] [place], [place] [address] [id number] I MR#: [id number] Acc #: [id number] NAME: LI OLIVER : 1955 SEX: M STUDY DATE/TIME: 03/13/2017 11:51 UNIT: C3A PCU ROOM: [facility] STUDY DESCRIPTION: MR Brain WWo Contrast Attending Physician: Manish Joyce M.D. Ordering Physician: Cassidy Laughlin A.P.R.N. Primary Care Physician: No Primary Care Physician MRI CENTER REPORT This report is preliminary unless electronic signature is present. EXAM Brain MR with and without contrast 03/13/[address] 03/12/2017 CLINICAL HISTORY Two day history of speech disturbance including echolalia and expressive aphasia. PROCEDURE Routine brain MR with and without contrast with some additional seizure protocol imaging. FINDINGS There is no MR evidence of acute ischemia or other restricted diffusion. There is no hydrocephalus or extraaxial fluid collection. The brain is structurally normal and normal flow voids are seen in the cerebral vessels. Brain parenchymal signal is within normal limits as well. There is no evidence of acute or chronic intracranial hemorrhage. There are chronic appearing changes in the left maxillary sinus but the extracranial structures are otherwise normal. Post contrast images show no evidence of intracranial mass or abnormal enhancement. The hippocampal formations are normal and symmetric. IMPRESSION Chronic left maxillary sinus mucosal disease, otherwise normal brain MR with and without contrast including normal seizure protocol imaging. Dictated by... Blair Grace M.D. [facility] A Service of [facility] RADIOLOGY TEXT RESULTS PATIENT: LI OLIVER LOCATION: C3A - : 54 UNIT #: [id number] AGE: [address]: Manish Joyce MD SEX: M ORDER DR: THIS IS AN ELECTRONICALLY VERIFIED REPORT Blair Grace M.D. at 03/14/2017 3:52 PM ERIK/phani TD: 03/13/2017 17:32 JOB #: [id number] MRI CENTER REPORT Page 1 of 1 COPY
--- NOTE | ~2017-03-12 | EE ---
Unit #: [id number] #: [id number] Patient: LI OLIVER [id number] [address] [address] [id number] I MR#: [id number] NAME: LI OLIVER : 1955 SEX: M STUDY DATE/TIME: 03/13/2017 UNIT: C3A PCU ROOM: [facility] STUDY DESCRIPTION: EEG Attending Physician: Manish Joyce M.D. Referring Physician: Manish Joyce M.D. Primary Care Physician: No Primary Care Physician NEURODIAGNOSTICS REPORT EXAM EEG REASON FOR THE STUDY Possible seizures. EEG DESCRIPTION This is an inpatient, digitally recorded, multi-montage adult EEG with leads placed according to the International 10-20 system. Hyperventilation and photic stimulation were attempted. This EEG showed diffuse background slowing. Most of the activity was 5 to 6.5 Hz. The patient did become drowsy but I did not see any deeper stages of sleep. Next, hyperventilation was attempted but I did not see any significant changes. Next, photic stimulation was attempted in an intermittent stepwise pattern up to the flash frequency of 30 Hz but I did not see any driving, asymmetry or paroxysmal activity. No clinical events were seen. IMPRESSION This is an abnormal EEG showing diffuse slowing which is indicative of encephalopathy. Whether this is static or progressive I cannot say but an EEG like this does not rule out epilepsy. Clinical correlation is recommended. Dictated by... Mago Belcher/kayla TD: 03/25/2017 20:38 JOB #: [id number] Unit #: [id number] #: [id number] Patient: LI OLIVER NEURODIAGNOSTICS REPORT Page 1 of 1 X Simon Aburto MD NEURODIAGNOSTICS REPORT
--- NOTE | ~2017-03-12 | CT71 ---
[facility] A Service [facility] RADIOLOGY TEXT RESULTS PATIENT: LI OLIVER LOCATION: [facility] PC 338- : 53 UNIT #: [id number] AGE: [address]: Manish Joyce MD SEX: M ORDER DR: [id number] [address] [address] [id number] MR#: [id number] Acc #: [id number] NAME: LI OLIVER : 1955 SEX: M STUDY DATE/TIME: 03/12/2017 19:16 UNIT: [place] ROOM: STUDY DESCRIPTION: CT Head Wo Contrast Attending Physician: Krishna De Leon M.D. Ordering Physician: Krishna De Leon M.D. Primary Care Physician: No Primary Care Physician MEDICAL IMAGING REPORT This report is preliminary unless electronic signature is present EXAM CT head without contrast INDICATIONS Confusion today. PROCEDURE Unenhanced CT head. This CT exam was performed with one or more of the following radiation dose reduction techniques: automatic control, adjustment of mA and/or kV according to patient size, and iterative reconstruction. COMPARISON 01/22/2017 FINDINGS No acute hemorrhage, abnormal mass effect, extraaxial collection or hydrocephalus. No evidence for acute or early subacute large territory infarct. Persistent dense opacification of the left maxillary sinus. No depressed calvarial fracture. IMPRESSION 1. No acute intracranial findings. 2. Stable dense opacification of the left maxillary sinus Dictated by... Obdulio Doty M.D. THIS IS AN ELECTRONICALLY VERIFIED REPORT Obdulio Doty M.D. at 03/13/2017 10:06 AM EED/jessica [facility] A Service of [facility] RADIOLOGY TEXT RESULTS PATIENT: LI OLIVER LOCATION: [facility] PC 338-01 : 53 UNIT #: [id number] AGE: [address]: Manish Joyce MD SEX: M ORDER DR: TD: 03/12/2017 19:49 JOB #: [id number] MEDICAL IMAGING REPORT Page 1 of 1 COPY
--- NOTE | ~2017-03-12 | DS ---
Unit #: [id number] #: [id number] Patient: LI OLIVER [id number] [address] [place], [place] [address] [id number] I MR#: [id number] NAME: LI OLIVER ROOM: 338 Age: 61 Sex: M Admission Date: 03/12/2017 : 1955 Discharge Date: 03/15/2017 Attending Physician: Manish Joyce M.D. Primary Care Physician: No Primary Care Physician DISCHARGE SUMMARY PRINCIPAL DISCHARGE DIAGNOSES 1. Acute mental status changes secondary to seizure disorder. 2. Epilepsy. 3. Boil right posterior shoulder. 4. Hypertension. 5. Sinus tachycardia. 6. Chronic obstructive pulmonary disease. 7. Type 2 diabetes mellitus. 8. Hyperlipidemia. 9. Major depressive disorder. 10. Gastroesophageal reflux disease. PROCEDURES None. CONSULTANTS Dr. Aburto. REASON FOR HOSPITALIZATION The patient is a 61-year-old white male with a history of seizure disorder, COPD, hyperlipidemia, hypertension, type 2 diabetes mellitus, major depressive disorder, presented to the emergency room per his stating that he started having echolalia, then expressive aphasia. He seemed to followed commands but would not verbally response. He had just been seen by [facility] for an abscess on his back and placed on Bactrim. In the emergency room he was evaluated, afebrile, tachycardic, hypertensive, O2 sat was normal at 97%. He had no obvious focal deficits. Chest x-ray showed no active disease. CT scan of the head showed no active disease with a chronically opacified left maxillary sinus. Random blood sugar was 157, white count was 12.1, ammonia was normal, alcohol was less than 5. Coags are normal. Tegretol was 4.8. Urinalysis was normal except for 1+ protein. EKG showed a sinus tachycardia and what appeared to be an old inferior UT and the patient was admitted. HOSPITAL COURSE The patient was admitted. He underwent bedside swallow eval, which he passed. He was placed on DVT prophylaxis. Accu-Cheks were obtained. Sliding scale insulin was instituted. He was placed on DVT prophylaxis with SCDs. Neurology was consulted. PFTs were performed and within normal limits. MRI of the brain was performed and within normal limits, except for again the chronic left maximally sinus opacification. The patient was placed on Toprol for sinus tachycardia and hypertension. His Vimpat was increased. His mental status improved rapidly with a higher Unit #: [id number] #: [id number] Patient: LI OLIVER dose of Vimpat. He appears to be stable. He is being discharged home. He is on a healthy heart constant carb diet. DISCHARGE MEDICATIONS 1. His Vimpat is increased from 100 b.i.d. to 150 b.i.d. and was given a prescription for 50 mg b.i.d. to be taken with his 100. 2. He is also given a prescription for Toprol XL 25 mg daily. He is to resume his other home meds: 3. Tegretol 200 mg b.i.d. 4. Celexa 20 mg daily. 5. Glucophage 1,000 mg b.i.d. 6. Actos 50 mg daily. 7. Lipitor 40 mg daily. 8. Breo Ellipta 100-25 one inhalation daily. 9. Singulair 10 mg daily. 10. Protonix 40 mg daily. 11. Bactrim double strength 1 p.o. b.i.d. 12. Glucotrol 5 mg p.o. b.i.d. with meals. FOLLOWUP He is to followup with Dr. Rodriguez in one week. Dictated by... Manish Joyce M.D. KIMBERLEE/amanda TD: 03/16/2017 11:21 JOB #: [id number] DISCHARGE SUMMARY Page 1 of 1 X Manish Joyce MD X DISCHARGE SUMMARY
--- NOTE | ~2017-03-12 | CO ---
Unit #: [id number] #: [id number] Patient: LI OLIVER [id number] [facility] [address] [place], [place] [address] [id number] MR#: [id number] NAME: LI OLIVER ROOM: 338 Age: 61 Sex: M Admission Date: 03/12/2017 : 1955 Attending Physician: Manish Joyce M.D. Consultation Date: 03/13/2017 CONSULTATION REPORT JOB NOTE: VERIFY ADT. PRIMARY CARE PHYSICIAN Not listed. CONSULTING PHYSICIAN Dr. Manish Joyce. REASON FOR CONSULTATION Questionable seizure. PATIENT IDENTIFICATION A 61-year-old right-handed, male, evaluated in room #338 in [facility]. SOURCE OF INFORMATION Obtained from the patient's at bedside as well as medical record. HISTORY OF PRESENT ILLNESS This is a 61-year-old right-handed male with a past medical history of seizure disorder, COPD, diabetes mellitus type 2, hyperlipidemia, and depression, who presents to [facility] with acute change in mental status. I discussed with his at the bedside. The patient is altered and unable to contribute on exam. He is awake, essentially nonverbal with positive response to threats visually, unable to follow commands. He hums at times, somewhat cooperative with visual cues, but not consistent. Moves his all extremities equally. Upon discussion with his at the bedside, she states that he has had altered mental status ongoing since yesterday morning. She states that he acted a little bit strange on Friday. At baseline, he is alert and oriented x4. She states that yesterday he had been roaming around the house, not responding appropriately, acting strange and different, actually had two events where his head was turned to the right and he was grinding his teeth and humming. She states he had an appointment with [facility] to follow up on the abscess on the back of his right shoulder and was started on Bactrim. She states that while he was there, she called Dr. Borden's office to let him know how the patient was having mental status changes. She ended up bringing him to the ER for further evaluation where his workup has been essentially unremarkable, but he is still not appropriate. He is not answering commands or following with verbal stimuli. He does mimic at times, but he has to be coached rather than actually following mimics. He has had some rhythmic eye movements reported, but I have not seen that personally. He does respond to visual threats. I remember seeing this Unit #: [id number] #: [id number] Patient: LI OLIVER patient in January and at that time, he was appropriate and able to provide history. He was alert and oriented to person and place as well as time, and was able to follow commands with no speech difficulty so this certainly appears to be a change from his baseline. A head CT was done without contrast in the ER on 03/12/2017 that was negative for any acute intracranial findings. EKG shows sinus tachycardia with a ventricular rate of 111 beats per minute. His Tegretol level was 4.8. Ammonia level 11. White blood cell count 12.1 with repeat white blood cell count this morning is 11.7. His BMP is unremarkable other than glucose of 164. Alcohol level is less than five. A chest x-ray shows low lung volumes, but no infiltrates or effusions. No pneumothorax and overall, no acute findings. PAST MEDICAL HISTORY 1. Seizure disorder. He was seen by Neurology in 01/2017 for breakthrough seizures, chronic memory loss, and seizure disorder. He was started on Keppra and remained on Tegretol. 2. Tobacco abuse. 3. Diabetes mellitus, type 2. 4. COPD. 5. Major depressive disorder. 6. Hyperlipidemia. 7. Bilateral cataract surgery. FAMILY HISTORY Noncontributory to the presenting condition. SOCIAL HISTORY He is . His is at the bedside. No history of alcohol abuse or illicit drug use. He smokes tobacco, specifically a pipe. ALLERGIES No known drug allergies. HOME MEDICATIONS Include, 1. Lipitor 40 mg p.o. daily. 2. Singulair 10 mg p.o. daily. 3. Breo Ellipta one inhalation daily. 4. Protonix 40 mg p.o. daily. 5. Vimpat 100 mg p.o. b.i.d. 6. Celexa 20 mg p.o. daily. 7. Tegretol 200 mg p.o. b.i.d. 8. Glucophage 1000 mg p.o. b.i.d. 9. Actos 15 mg p.o. daily. 10. Glucotrol 5 mg p.o. b.i.d. 11. Bactrim DS one p.o. b.i.d., started yesterday by [facility]. REVIEW OF SYSTEMS Unable to obtain from the patient given his mental status. His denies any recent complaint by him of any fever or infectious complaints, but has been complaining of a right shoulder lesion which has been diagnosed an abscess. As of yesterday, he was started on antibiotics. No exposure to ill or sick contacts recently, otherwise as discussed above. PHYSICAL EXAMINATION VITAL SIGNS: Temperature 99.0, pulse 104, respirations 20, blood pressure 121/80, and oxygen saturation 92%. Height 5 feet 5 inches. Weight 156 Unit #: [id number] #: [id number] Patient: LI OLIVER. BMI 26. NEUROLOGIC: The patient is awake. He is alert, but not appropriately responsive. He is unable to contribute verbally. He has positive response to visual threats. Unable to follow commands. At times throughout evaluation he hums in a rhythmic pattern. He is somewhat cooperative with visual cues, but not consistent. He does move all extremities spontaneously and equally. Cranial nerve exam; he responds to threats in the primary visual vaughn. Eyes are conjugate. No observed ptosis or nystagmus at this time. Extraocular movements are intact. He can visually track. Unable to assess sensation of face and scalp. Unable to fully assess the strength of muscles of the facial expression. The patient is not fully cooperative with verbal commands or mimic, but no obvious asymmetry seen. Hearing appears to be intact to voice. Unable to assess tongue, uvula, or palate. Head turning is unremarkable spontaneously. Neck is supple. No meningismus noted. Motor exam; he moves all extremities equally and spontaneously, but unable to further assess. Gait and Romberg, deferred. Reflexes, unable to elicit. Toes are equivocal. Coordination, unable to assess. No tremors or myoclonus seen. DIAGNOSTIC STUDIES IMAGING STUDIES: Please see above. LABORATORY DATA: Please see above. Urinalysis shows greater than 1000 glucose, but negative for bacteria. IMPRESSION 1. Possible breakthrough complex partial seizure activity. 2. Altered mental status, questionably secondary to #1 versus other etiology. 3. History of seizure disorder. 4. Right shoulder back abscess, followed by [facility], started on Bactrim DS. 5. Diabetes mellitus, type 2. 6. Depression. PLAN We will request MRI of the brain without and with contrast, and also check an EEG. We will give him an extra dose of Vimpat and increase the dosing. Concern about possible autoinduction of Tegretol. His states she had become concerned that he was not taking it appropriately so she has been giving him his medication now. If workup is otherwise unremarkable and the patient did not improve, may have to consider lumbar puncture if needed. At this time, he is afebrile and white count has trended down and it is only 11.7, possibly reactive. Nothing otherwise to suggest an infectious etiology, but must consider given his mental status change. We will follow up on imaging and follow him closely clinically. Please see orders. Case was discussed with Dr. Aburto, who has seen the patient and discussed with the as well. We thank you very much for allowing us to assist in the care of this patient. Dictated by... Dhara LeonardPDimitriRDimitriN. for Mago Belcher/cyndie Unit #: [id number] #: [id number] Patient: LI OLIVER TD: 03/14/2017 12:31 JOB #: [id number] CONSULTATION REPORT Page 1 of 1 X Cassidy Laughlin APARTMENT COORDINATOR X CONSULTATION REPORT
[~2017-03-12 17:49] MED LIST changes: +ACETAMINOPHEN325 MG PO; +APTIOM800 MG PO; +BREO ELLIPTA 11 EACH INH; +PROTONIX PO; +VIMPAT100 MG PO
[2017-03-12 20:05] LABS: BASOPHIL# 0.1 X10e3 (0-0.3); BASOPHIL% 0.4 % (0-2.5); EOSINOPHIL% 0.2 % (0.0-7.0); HEMATOCRIT 44.8 % (38.0-50.0); HEMOGLOBIN 14.9 gm/dL (13.0-16.0); LYMPHOCYTE% 16.5 % (17.0-45.0); MEAN CORPUSCULAR HEMOGLOBIN 28.4 PG (28-34); MEAN CORPUSCULAR HGB CONC 33.4 g/dL (30-36); MEAN PLATELET VOLUME 8.1 FL (6.5-11.5); MONOCYTE# 0.7 X10e3 (0-1.0); MONOCYTE% 6.2 % (3.0-12.0); NEUTROPHIL# 9.3 X10e3 (1.5-7.1); NEUTROPHIL% 76.7 % (40-75); PLATELET COUNT 229 X10e3 (140-420); RED BLOOD COUNT 5.27 X10e (3.90-5.60); WHITE BLOOD COUNT 12.1 X10e3 (4.0-10.5)
[2017-03-12 20:06] LABS: DIFF IND NO
[2017-03-12 20:18] LABS: INR 1.1
[2017-03-12 20:26] LABS: ALBUMIN SERUM 4.4 g/dL (3.5-5.0); ALKALINE PHOSPHATASE 81 U/L (32-92); ALT (SGPT) 18 U/L (10-40); AST (SGOT) 17 U/L (10-42); BILIRUBIN, DIRECT 0.1 mg/dL (0.0-0.2); BILIRUBIN,INDIRECT 0.4 mg/dL (0.0-0.9); BILIRUBIN,TOTAL 0.5 mg/dL (0.2-2.0); BLOOD UREA NITROGEN 13 mg/dL (9-23); BUN/CREATININE RATIO 16.25; CARBON DIOXIDE 26 mmol/L (22-31); CHLORIDE 102 mmol/L (100-111); CREATININE SERUM 0.8 mg/dL (0.6-1.4); GLOM FILT RATE Estimated 95.8 mL/min (>60); GLUCOSE FASTING 164 mg/dL (70-110); POTASSIUM 3.8 mmol/L (3.5-5.1); PROTEIN TOTAL SERUM 7.4 g/dL (6.0-8.3); SODIUM 136 mmol/L (135-145)
[2017-03-12 20:27] LABS: ALCOHOL BLOOD <5 mg/dL (0)
[2017-03-12 21:03] LABS: URINE SOURCE CLEAN CATCH
[2017-03-12 21:11] LABS: URINE APPEARANCE CLEAR; URINE BILIRUBIN NEG (NEG); URINE BLOOD NEG (NEG); URINE COLOR YELLOW; URINE GLUCOSE >1000 MG/DL (NEG); URINE KETONE TRACE (NEG); URINE LEUKOCYTE ESTERASE NEG (NEG); URINE NITRATE NEG (NEG); URINE PH 6.5 (5-8); URINE PROTEIN 1+ (NEG); URINE SPECIFIC GRAVITY 1.031 (1.003-1.035)
[2017-03-12 21:14] LABS: URBCS1 AUWI 0-2 /[HPF] (0-2); URINE BACTERIA AUWI NEG (NEGATIVE); URINE SQUAMOUS EPITHELIAL CELL NONE SEEN /[HPF]; UWBCS1 AUWI 0-2 (0-5)
[2017-03-12 21:15] LABS: CULTURE INDICATED? NO
[2017-03-12] MEDS ORDERED: CELEXA20 MG PO (22:42)
[2017-03-12] MEDS ORDERED: TEGRETOL PO (22:43)
[2017-03-12] MEDS ORDERED: METFORMIN PO (22:43)
[2017-03-12] MEDS ORDERED: PIOGLITAZONE HC15 MG PO (22:44)
[2017-03-12] MEDS ORDERED: GLUCOTROL PO (22:45)
[2017-03-12] MEDS ORDERED: ATORVASTATIN CA40 MG PO (22:46)
[2017-03-12] MEDS ORDERED: MONTELUKAST SOD10 MG PO (22:46)
[2017-03-12] MEDS ORDERED: PANTOPRAZOLE SO40 MG PO (22:47)
[2017-03-12] MEDS ORDERED: BREO ELLIPTA 11 EACH INH (22:47)
[2017-03-12] MEDS ORDERED: VIMPAT100 MG PO (22:48)
[2017-03-12] MEDS ORDERED: SULFAMETHOXAZO1 EACH PO (22:50)
[2017-03-13 06:26] LABS: BASOPHIL# 0.1 X10e3 (0-0.3); BASOPHIL% 0.5 % (0-2.5); EOSINOPHIL% 0.4 % (0.0-7.0); HEMATOCRIT 43.7 % (38.0-50.0); HEMOGLOBIN 14.7 gm/dL (13.0-16.0); LYMPHOCYTE% 17.4 % (17.0-45.0); MEAN CELL VOLUME 84.4 FL (83-96); MEAN CORPUSCULAR HEMOGLOBIN 28.5 PG (28-34); MEAN CORPUSCULAR HGB CONC 33.7 g/dL (30-36); MEAN PLATELET VOLUME 8.2 FL (6.5-11.5); MONOCYTE# 0.9 X10e3 (0-1.0); MONOCYTE% 7.8 % (3.0-12.0); NEUTROPHIL# 8.6 X10e3 (1.5-7.1); NEUTROPHIL% 73.9 % (40-75); PLATELET COUNT 221 X10e3 (140-420); RED BLOOD COUNT 5.18 X10e (3.90-5.60); RED CELL DISTRIBUTION WIDTH 12.8 % (11.0-15.5); WHITE BLOOD COUNT 11.7 X10e3 (4.0-10.5)
[2017-03-13 06:32] LABS: DIFF IND NO
[2017-03-13 07:19] LABS: BUN/CREATININE RATIO 15.55; CALCIUM SERUM 9.2 mg/dL (8.4-10.2); CREATININE SERUM 0.9 mg/dL (0.6-1.4); GLOM FILT RATE Estimated 91.2 mL/min (>60); POTASSIUM 3.9 mmol/L (3.5-5.1)
[2017-03-14 10:06] LABS: THYROID STIMULATING HORMONE 1.4 uIU/ml (0.34-5.60)
[2017-03-14 10:13] LABS: FREE THYROXIN (T4) 0.61 ng/dL (0.58-1.64)
[2017-03-15] MEDS ORDERED: TOPROL XL PO (08:05)
[2017-03-15] MEDS ORDERED: VIMPAT50 MG PO (08:06)
[2017-03-27] MEDS ORDERED: METOPROLOL TAR25 MG (14:54)
== END 2017-03-15 10:27 | disposition home or self-care (01) ==
LOC: CED 17:49 → C3A PCU 21:26 → CEDOF 21:26 → CED 21:36 → CEDOF 21:36 → C3A PCU 03-13 00:04 → CEDOF 03-13 00:04 → C3A PCU 03-13 00:04
PROVIDERS: Emergency Medicine; Internal Medicine
DX: G40.909 Epilepsy, unspecified, not intractable, without status epilepticus (principal); R41.82 Altered mental status, unspecified; L02.423 Furuncle of right upper limb; R00.0 Tachycardia, unspecified; J44.9 Chronic obstructive pulmonary disease, unspecified; E11.9 Type 2 diabetes mellitus without complications; Z79.84 Long term (current) use of oral hypoglycemic drugs; E78.5 Hyperlipidemia, unspecified; J34.89 Other specified disorders of nose and nasal sinuses; F32.9 Major depressive disorder, single episode, unspecified; K21.9 Gastro-esophageal reflux disease without esophagitis; F17.290 Nicotine dependence, other tobacco product, uncomplicated; Z79.51 Long term (current) use of inhaled steroids; Z79.2 Long term (current) use of antibiotics
CPT/HCPCS: 36415; 51701; 70450; 70553; 71010; 80048; 80076; 80156; 81003; 82140; 82947; 84439; 84443; 85025; 85610; 92526; 92610; 93005; 94640; 94760; 95816; 96374; 96376; 99285; A9577; C9254; G0378; G0480; J1815

== ENCOUNTER → 2017-04-08 | Day surgery (SDC) | payer OTHER ==
[~2017-04-08] MED LIST changes: +ATORVASTATIN CA40 MG PO; +CELEXA20 MG PO; +METOPROLOL TAR25 MG; +PANTOPRAZOLE SO40 MG PO; +PIOGLITAZONE HC15 MG PO; +SULFAMETHOXAZO1 EACH PO; +TOPROL XL PO; +VIMPAT50 MG PO
--- NOTE | ~2017-04-08 | OR ---
Unit #: [id number] #: [id number] Patient: LI OLIVER [id number] [address] [address] [id number] MR#: [id number] NAME: LI OLIVER ROOM: Date of Procedure: 04/08/2017 Admission Date: 04/08/2017 Surgeon: Augie Muñoz Jr., M.D. : 1955 Attending Physician: Augie Muñoz Jr., M.D. Primary Care Physician: Agusto Rodriguez M.D. OPERATIVE REPORT INDICATIONS FOR PROCEDURE The patient is a 61-year-old white male, recently presented to the office complaining of an enlarging chronic inflamed cystic mass of the right upper back. This has drained in the past, had been very large recently, but has improved with antibiotics. He is brought in this time for excision of chronic inflamed cyst of the upper back. PREOPERATIVE DIAGNOSIS Large chronic inflamed 6 cm cyst of the right upper back. POSTOPERATIVE DIAGNOSIS Large chronic inflamed 6 cm cyst of the right upper back, noting no acute infection. ANESTHESIA 0.5% Marcaine with epinephrine locally. PROCEDURE PERFORMED Excision of large cyst of the right upper back. DESCRIPTION OF PROCEDURE The patient was placed in prone position, prepped and draped in routine fashion for excision of this large cystic mass of the right upper back. The area was locally blocked with 0.5% Xylocaine with epinephrine locally and an elliptical incision was made around the lesion being totally excised from the surrounding tissue. After it was completely removed with a #10 blade scalpel down to the deeper subcutaneous tissue and the fascia of the muscle, it was sent to pathology. Hemostasis was achieved with Bovie cautery. Deeper tissue approximated with interrupted 2-0 and 3-0 Vicryl sutures and the skin edges were approximated with stainless-steel skin clips and skin stapling device. Sterile compressive dressing was applied externally. Estimated blood loss minimal, less than 20 mL. The patient received no fluids during the procedure. Sponges and instrument counts were correct x3. No drains used. No complications. The patient was taken to the discharge area with stable vital signs for discharge in satisfactory condition. Dictated by... Augie Muñoz Jr., M.D. Unit #: [id number] #: [id number] Patient: MELODYLI CANO/cyndie TD: 04/08/2017 20:21 JOB #: [id number] OPERATIVE REPORT Page 1 of 1 X Augie Muñoz MD PROCEDURE OPERATIVE NOTE
== END | disposition home or self-care (01) ==
LOC: CSUR 07:27
DX: L72.0 Epidermal cyst (principal); J44.9 Chronic obstructive pulmonary disease, unspecified; K21.0 Gastro-esophageal reflux disease with esophagitis; E11.9 Type 2 diabetes mellitus without complications; F17.200 Nicotine dependence, unspecified, uncomplicated; N40.1 Benign prostatic hyperplasia with lower urinary tract symptoms; R35.0 Frequency of micturition; J45.909 Unspecified asthma, uncomplicated; G44.229 Chronic tension-type headache, not intractable; E78.00 Pure hypercholesterolemia, unspecified; F32.9 Major depressive disorder, single episode, unspecified; Z79.51 Long term (current) use of inhaled steroids; Z79.84 Long term (current) use of oral hypoglycemic drugs; Z79.899 Other long term (current) drug therapy; Z98.42 Cataract extraction status, left eye; Z98.41 Cataract extraction status, right eye
CPT/HCPCS: 82947; 88304